=== PATIENT | female | born 1930 | race Caucasian/White ===

== ENCOUNTER 2018-06-26 10:34 | Day surgery (SDC) | payer MEDICARE ==
[2018-06-18 10:33] LABS: BASOPHILS # (AUTO) 0.1 X10'3 (0-0.2); BASOPHILS % (AUTO) 0.8 % (0-1); EOSINOPHILS # (AUTO) 0.1 X10'3 (0-0.9); EOSINOPHILS % (AUTO) 1.7 % (0-6); HEMATOCRIT 39.7 % (35.0-45.0); HEMOGLOBIN 13.2 g/dl (12.0-16.0); LYMPHOCYTES # (AUTO) 1.3 X10'3 (1.1-4.8); LYMPHOCYTES % (AUTO) 15.9 % (21-51); MEAN CORPUSCULAR HEMOGLOBIN 29.9 PG (27.0-31.0); MEAN CORPUSCULAR HGB CONC 33.1 g/dL (33.0-36.5); MEAN CORPUSCULAR VOLUME 90.1 FL (78-98); MONOCYTES # (AUTO) 0.5 X10'3 (0-0.9); MONOCYTES % (AUTO) 5.8 % (2-12); NEUTROPHILS # (AUTO) 6.2 X10'3 (1.8-7.7); NEUTROPHILS % (AUTO) 75.8 % (42-75); PLATELET COUNT 282 X10'3 (140-440); RED BLOOD COUNT 4.41 X10'6 (4.20-5.60); RED CELL DISTRIBUTION WIDTH 13.2 % (11.5-14.5); WHITE BLOOD COUNT 8.1 X10'3 (4.5-11.0)
[2018-06-18 10:48] LABS: ALANINE AMINOTRANSFERASE 25 U/L (12-78); ALBUMIN 3.6 G/DL (3.4-5.0); ALBUMIN/GLOBULIN RATIO 1.1 (1.1-1.5); ALKALINE PHOSPHATASE 51 IU/L (46-116); ANION GAP 10 (8-16); ASPARTATE AMINO TRANSFERASE 20 U/L (10-37); BILIRUBIN,TOTAL 0.5 MG/DL (0.1-1.0); BLOOD UREA NITROGEN 12 MG/DL (7-18); BUN/CREATININE RATIO 16.7 (6.6-38.0); CALCIUM 9.3 MG/DL (8.5-10.1); CHLORIDE 100 MMOL/L (99-107); CREATININE 0.72 MG/DL (0.40-0.90); GLUCOSE 86 MG/DL (70-104); POTASSIUM 4.2 MMOL/L (3.5-5.1); SODIUM 137 MMOL/L (135-145); TOTAL CARBON DIOXIDE 27.4 MMOL/L (24-32); TOTAL PROTEIN 6.9 G/DL (6.4-8.2); eGFR 77 ML/MIN
[2018-06-18 10:54] LABS: PARTIAL THROMBOPLASTIN TIME 30 SECONDS (22-32)
[2018-06-26] VITALS (12 sets, daily range): BP systolic 125–186; BP diastolic 59–91
[~2018-06-26] VITALS: Ht 154.9 cm; Wt 47.9 kg
[2018-06-26] MEDS ORDERED: diphenhydrAMINE 25mg capsule PO PRN (11:10)
[2018-06-26] MEDS ORDERED: LORazepam 0.5 MG tablet PO PRN (11:10)
[2018-06-26] MEDS ORDERED: normal saline 1000ml 1,000 ML IV SCH (11:10)
[2018-06-26] MEDS ORDERED: nitroGLYCERIN 0.4mg SUBLingual tab SL PRN (11:10)
[2018-06-26] MEDS ORDERED: LEVO100T PO (11:27)
[2018-06-26] MEDS ORDERED: PRAV10TA39 PO (11:27)
[2018-06-26] MEDS ORDERED: ALEN70TA13 PO (11:27)
[2018-06-26] MEDS ORDERED: midazolam 2 mg/2 ml injection ONE (14:05)
[2018-06-26] MEDS ORDERED: iohexol 350MG/ML 100ml bottle IV ONE (14:05)
[2018-06-26] MEDS ORDERED: fentaNYL/PF 50MCG/1 ML 2ML syringe ONE (14:05)
[2018-06-26] MEDS ORDERED: LIDOcaine 1% (10mg/ml)w/preservative injection 20ml MDV ONE (14:05)
[2018-06-26] MEDS ORDERED: iohexol 350 MG/ML 50ML vial IV ONE (14:05)
[2018-06-26] MEDS ORDERED: nitroGLYCERIN-Tridil 50MG/D5W 250 ML IV ONE (14:56)
[2018-06-26] MEDS ORDERED: OXAZEpam 15mg capsule PO PRN (15:30)
[2018-06-26] MEDS ORDERED: HYDROcodone/acetaminophen 5mg/325mg tablet PO PRN (15:30)
[2018-06-26] MEDS ORDERED: proCHLORperazine 10 MG/2 ml inj IV PRN (15:30)
[2018-06-26] MEDS ORDERED: acetaminophen 325mg tablet PO PRN (15:30)
[2018-06-26] MEDS ORDERED: ondansetron/PF 4mg/2ml inj IV PRN (15:30)
[2018-06-26] MEDS ORDERED: HYDROcodone/acetaminophen 10/325mg tab PO PRN (15:30)
== END 2018-06-26 21:00 | disposition home or self-care (01) ==
LOC: SSTAY O 10:34
PROVIDERS: ATTEND Internal Medicine Cardiovascular Disease
DX: I25.10 Atherosclerotic heart disease of native coronary artery without angina pectoris (principal); I10 Essential (primary) hypertension; E78.5 Hyperlipidemia, unspecified; Z79.899 Other long term (current) drug therapy; Z90.710 Acquired absence of both cervix and uterus; Z98.890 Other specified postprocedural states; Z79.82 Long term (current) use of aspirin; Z79.01 Long term (current) use of anticoagulants
CPT/HCPCS: 36415; 71046; 80053; 85025; 85610; 85730; 93005; 93458; 99152; 99153; A6257; J1644; J2001; J2250; J3010; J7030; Q0163; Q9967; A4620; C1760; C1769; J3490